=== PATIENT | male | born 1990 | race Caucasian/White ===

== ENCOUNTER 2016-06-20 01:07 | Emergency (ER) | payer OTHER ==
[~2016-06-20] VITALS: Ht 185.4 cm; Wt 70.3 kg
[2016-06-20 01:07] VITALS: BP_SYST 126
[2016-06-20] MEDS ORDERED: SULFAMETHOXAZOLE/TRIMETHOPR DS 1 TABLET PO ONE (01:45)
[2016-06-20] MEDS ORDERED: AMOXICILLIN/CLAVULANATE POTASSIUM 875 MG TABLET PO ONE (01:45)
[2016-06-20 02:22] VITALS: BP_SYST 126
[2016-06-20] MEDS ORDERED: BACITRACIN 1 GM OINT TP ONE (02:23)
== END 2016-06-20 02:22 | disposition home or self-care (01) ==
LOC: SED 01:07
DX: S81.851A Open bite, right lower leg, initial encounter (principal); L03.115 Cellulitis of right lower limb; W54.0XXA Bitten by dog, initial encounter; Y93.89 Activity, other specified; Y92.89 Other specified places as the place of occurrence of the external cause; Y99.8 Other external cause status
CPT/HCPCS: 99283